=== PATIENT | female | born 2000 | race Caucasian/White ===

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

== ENCOUNTER 2020-01-27 20:15 | Emergency (ER) | payer SELFPAY ==
[~2020-01-27] VITALS: Ht 167 cm; Wt 155.8 kg
[2020-01-27 20:24] VITALS: BP 160/98
--- NOTE | 2020-01-27 20:57 | ED Back Pain ---
General Chief Complaint: Back Problems Stated Complaint: BACK PAIN Nursing Triage Note: pt presents to ed with concern of lower back pain. pt was bending over to lift a package yesterday and her pain started at that point Nursing Sepsis Screen: No Definite Risk History of Present Illness Date Seen by Provider: Jan 27, 2020 Time Seen by Provider: 20:45 Initial Comments 19-year-old female presents for low back pain. She reports feeling a stretching sensation while doing yoga a week ago. Yesterday, she lifted a large box and felt increased pain. No bowel or bladder incontinence or retention. She took Ibuprofen last evening, hasn't need pain medication today. No chronic history of back problems. Location: Lumbar Spine, Paraspinous Muscles Timing/Duration: 3-4 Days Severity: Moderate Pain/Injury Location: Back Radiation: Buttocks, Upper Legs Method of Injury: Other Associated Symptoms: muscle spasms; No numbness in legs/feet, No tingling in legs/feet, No sensory/motor loss; lower back pain; No loss of bladder control, No loss of bowel control Allergies and Home Medications Allergies Coded Allergies: No Known Drug Allergies (Unverified , 03/11/18) Home Medications Hyoscyamine Sulfate 0.125 Mg Tab.subl, 1-2 TAB SL Q4H Prescribed by: IVA BRITTON on 03/12/18139 Ondansetron 4 Mg Tab.rapdis, 4 MG PO Q4H Prescribed by: IVA BRITTON on 03/12/18139 Pantoprazole Sodium 40 Mg Tablet.dr, 40 MG PO DAILY Prescribed by: IVA BRITTON on 03/12/18139 Patient Home Medication List Home Medication List Reviewed: Yes Review of Systems Constitutional: no symptoms reported, see HPI Musculoskeletal: see HPI, back pain; No neck pain All Other Systems Reviewed Negative Unless Noted: Yes Past Pcxfein-Whhdde-Rmjjtc Hx Past Med/Social Hx: Reviewed Nursing Past Med/Soc Hx Patient Social History Alcohol Use: Denies Use Recreational Drug Use: No Smoking Status: Never a Smoker 2nd Hand Smoke Exposure: No Recent Foreign Travel: No Contact w/Someone Who Travel: No Recent Infectious Disease Expo: No Recent Hopitalizations: No Physical Abuse: No Sexual Abuse: No Mistreated: No Immunizations Up To Date Tetanus Booster (TDap): Unknown PED Vaccines UTD: Yes Seasonal Allergies Seasonal Allergies: Yes Past Medical History Surgeries: No Respiratory: Yes Asthma Currently Using CPAP: No Currently Using BIPAP: No Cardiac: No Neurological: No : No Hx : 0 Hx Para: 0 Genitourinary: No Gastrointestinal: No Gastroesophageal Reflux Musculoskeletal: Yes Back Injury Endocrine: No HEENT: No Cancer: No Psychosocial: No Anxiety, Depression Integumentary: No Blood Disorders: No Adverse Reaction/Blood Tranf: No Physical Exam Vital Signs Vital Signs - First Documented 01/27/20 20:24 Temp 36.8 Pulse 114 Resp 18 B/P (MAP) 160/98 (118) Pulse Ox 100 O2 Delivery Room Air Capillary Refill : Less Than 3 Seconds Height, Weight, BMI Height: 5'7.00" Weight: 290lbs. oz. 131.351967zm; 55.00 BMI Method:Stated General Appearance: No Apparent Distress, WD/WN, Obese Cardiovascular: Regular Rate, Rhythm, No Edema, No Murmur, Normal Peripheral Pulses Respiratory: Chest Non Tender, Lungs Clear, Normal Breath Sounds Gastrointestinal: Normal Bowel Sounds, Non Tender, Soft Back: Normal Inspection, No CVA Tenderness, No Vertebral Tenderness, Decreased Range of Motion (trace with pain and point); No Muscle Spasm, No Vertebral Tenderness; Other (patient ambulates with a steady gait, able to rise on her toes and heels. Power V/V L4-S1. Neg SLR sign. ) Extremity: Normal Capillary Refill, Normal Inspection, Normal Range of Motion Neurologic/Psychiatric: Alert, Oriented x3, No Motor/Sensory Deficits, Normal Mood/Affect Progress/Results/Core Measures Results/Orders My Orders Orders - ISADORA KAUFMAN Acetaminophen Tablet (Tylenol Tablet) (01/27/20 21:00) Medications Given in ED Current Medications Medications Dose Ordered Sig/Mimi Route Start Time Stop Time Status Last Admin Dose Admin Acetaminophen 1,000 mg ONCE ONCE PO 01/27/20 21:00 01/27/20 21:01 DC 01/27/20 21:04 1,000 MG Vital Signs/I&O 01/27/20 20:24 Temp 36.8 Pulse 114 Resp 18 B/P (MAP) 160/98 (118) Pulse Ox 100 O2 Delivery Room Air Blood Pressure Mean: 118 Departure Impression Primary Impression: Lumbar sprain Qualified Codes: S33.5XXA - Sprain of ligaments of lumbar spine, initial encounter Additional Impression: Back pain Qualified Codes: M54.42 - Lumbago with sciatica, left side; M54.41 - Lumbago with sciatica, right side Disposition: 01 HOME, SELF-CARE Condition: Improved Departure-Patient Inst. Decision time for Depature: 20:50 Referrals: [facility] (PCP/Family) Primary Care Physician Patient Instructions: Lumbar Muscle Strain (DC) Add. Discharge Instructions: Alternate heat and ice to your low back. Apply icy hot with lidocaine to areas of tenderness. Alternate between Tylenol 650 mg and ibuprofen 600 mg every 4 hours for pain. Follow-up with your chiropractor or the nurse practitioner [facility]. Return to the emergency department for new, urgent health care needs. All discharge instructions reviewed with patient and/or family. Voiced understanding. ISADORA KAUFMAN Jan 27, 2020 20:57
[2020-01-27] MEDS ORDERED: ACETAMINOPHEN 500 MG TAB (TYLENOL) PO ONE (21:00)
--- OUTSIDE RECORDS SUMMARY | 2020-01-27 21:05 | XMS REPORT ---
Author Author [employer] [email or web address] Address [address] [address] Care Team Providers Care Project Manager Name Role Phone STEPHANIE NORWOOD Unavailable Unavailable MEDEROS JALEN Unavailable Unavailable SAMI JEFFERSNYA Unavailable Unavailable STEPHANIE NORWOOD Unavailable STEPHANIE NORWOOD Unavailable zzANTONY, STEPHANIE Unavailable zzANTONY, STEPHANIE Unavailable zzANTONY, STEPHANIE Unavailable YOLANDE KENNEDY Unavailable BRII, WILEY Unavailable BRII, WILEY Unavailable STEPHANIE VALENTINE Unavailable CHETAN Johnston Unavailable STEPHANIE VALENTINE Unavailable LIDIA WILD Unavailable BRII, WILEY Unavailable LIDIA WILD Unavailable LIDIA WILD Unavailable LIDIA WILD Unavailable BRII, WILEY Unavailable BRIDGER PLASENCIA Unavailable LIDIA WILD Unavailable BRIGITTE RIZVI Unavailable LIDIA WILD Unavailable LIDIA WILD Unavailable KASEY MOURA MD Unavailable Unavailable LIDIA WILD Unavailable LIDIA WILD Unavailable LOREE GALINDO Unavailable [facility] Unavailable ROXY PLASENCIA Unavailable ROXY PLASENCIA Unavailable Migration, Doctor Unavailable Unavailable Migration, Doctor Unavailable Unavailable LIDIA WILD Unavailable Unavailable Migration, Doctor Unavailable Unavailable Migration, Doctor Unavailable Unavailable Migration, Doctor Unavailable Unavailable TEETEE MICHAEL Unavailable Migration, Doctor Unavailable Unavailable zzANTONY, STEPHANIE Unavailable zzANTONY, STEPHANIE Unavailable Migration, Doctor Unavailable Unavailable zzANTONY, STEPHANIE Unavailable Migration, Doctor Unavailable Unavailable zkennaFANNIEKenneth CHETAN Unavailable Migration, Doctor Unavailable Unavailable zzANTONY, STEPHANIE Unavailable Migration, Doctor Unavailable Unavailable Unavailable Unavailable Migration, Doctor Unavailable Unavailable Migration, Doctor Unavailable Unavailable Migration, Doctor Unavailable Unavailable Migration, Doctor Unavailable Unavailable Migration, Doctor Unavailable Unavailable Migration, Doctor Unavailable Unavailable Migration, Doctor Unavailable Unavailable Migration, Doctor Unavailable Unavailable AMAN KELLEY, ERNESTO Glasgow Unavailable Unavailable Unavailable Unavailable Unavailable Unavailable Unavailable Unavailable Unavailable Unavailable Allergies The data below is from unstructured sources Substance Reaction Event Type N.K.D.A. Info Not Available Non Drug Allergy Substance Reaction Event Type Date Status N.K.D.A. Unknown Non Cristian g Allergy Jun, Unknown No Information Encounters Encounter Date Encounter Type Encounter Diagnosis Care Provider Facility Start: Emergency department [facility]NESTO [facility] 01-27-2020 patient visit [facility] Start: Patient encounter LIDIA WILD [facility] 01-24-2020 procedure [facility] Start: Patient encounter ILDIA WILD [facility] 01-14-2020 procedure [facility] Start: [facility] Exercise induced LIDIA Glasgow [facility] 12-22-2019 bronchospasm Start: [facility], left ear LORENE SHAKEEL Mcpherson [facility] 12-16-2019 CARE CARE Start: Encounter by computer LIDIA WILD [facility] 12-14-2019 link Start: Telephone encounter LIDIA WILD [facility] 12-14-2019 Start: Encounter by computer LIDIA WILD [facility] 12-13-2019 link Start: Encounter by computer LIDIA WILD [facility] 12-11-2019 link Start: Encounter by computer LIDIA WILD [facility] 11-30-2019 link Start: [facility] Start: [facility] Exercise induced LIDIA WILD [facility] 11-29-2019 bronchospasm Start: [facility] encounter NA [facility] 09-29-2019 [facility] Start: [facility] encounter NA [facility] 08-25-2019 [facility] Start: [facility] encounter NA [facility] 08-09-2019 procedure [facility] Start: Patient encounter LIDIA WILD [facility] 07-12-2019 procedure [facility] ([id number]) Start: Patient encounter LIDIA WILD [facility] 04-17-2019 procedure [facility] (43583) Start: Patient encounter LIDIA WILD [facility] 04-17-2019 procedure [facility] (49288) Start: Patient encounter LIDIA WILD [facility] 12-28-2018 procedure [facility] ([id number]) Start: Patient encounter LIDIA WILD [facility] 10-30-2018 procedure [facility] (49009) Start: Patient encounter LIDIA WILD [facility] ealt 08-24-2018 procedure [facility] (75976) Start: Patient encounter NA [facility]alth 06-16-2018 procedure [facility] (21952) Start: Patient encounter LIDIA WILD [facility] ealt 06-11-2018 procedure [facility] (49740) Start: Emergency department MING BERNOT Not Avai lable ([id number]) 05-19-2018 patient visit End: 05-20-2018 Start: Patient encounter MING BERNOT Not Availab le ([id number]) 05-19-2018 procedure Start: Emergency department IVAKy BRITTON DO Not Avai lable ([id number]) 03-12-2018 patient visit End: 03-12-2018 Start: Patient encounter 03-12-2018 procedure Start: Patient encounter NA NA Not Availab le ([id number]) 01-19-2018 procedure Start: Patient encounter LIDIA WILD Not Availab le ([id number]) 01-18-2018 procedure Start: Patient encounter [facility]IDIA WILD [facility] 12-17-2017 [facility] (22055) Start: Patient encounter NA NA Not Availab le (45115) 12-10-2017 procedure Start: Patient encounter LIDIA WILD [facility] 12-04-2017 procedure [facility] ([id number]) Start: Patient encounter LIDIA WILD [facility] 10-06-2017 procedure [facility] ([id number]) Start: Patient encounter KASEY MOURA MD Not Avail able ([id number]) 08-26-2016 procedure Start: Patient encounter KASEY MOURA MD Not Avail able ([id number]) 05-13-2016 procedure Patient encounter NA NA [facility] procedure [facility] (86353) Medical Equipment No Information Goals No Information Immunizations Immunizatio Immunization Notes Care Provider Facility n Date 04-16-2019 influenza, seasonal, NA NA [facility] injectable [facility] ([id number]) 06-16-2018 TORADOL (IM) 60 MG/2ML [facility] (UP TO 15 MG) Other Phone: [facility] [place] ([id number]) 02-25-2018 meningococcal B NA NA Not Available (77453) vaccine, recombinant, OMV, adjuvanted ; Translations: [BEXSERO (MEN B)] 02-25-2018 meningococcal NA [facility] - (groups A, C, Y and [facility] W-135) diphtheria (74457) toxoid conjugate vaccine (MCV4O) 02-25-2018 Human Papillomavirus NA NA Not Avai lable (91523) 9-valent vaccine ; Translations: [SINGLE IMMUNIZATION ADMIN] 02-25-2018 Meningococcal, MCV4, LIDIA WILD [facility] unspecified conjugate Other Phone: [facility] formulation(groups A, [place] (93323) C, Y and W-135) 05-04-2014 meningococcal Critical access hospital polysaccharide (groups Other Phone: [facility] Chelsie nicholeglenn A, C, Y and W-135) [place] (78076) diphtheria toxoid conjugate vaccine (MCV4P) 05-04-2014 tetanus toxoid, [facility] reduced diphtheria Other Phone: [facility] t toxoid, and acellular [place] (22537) pertussis vaccine, adsorbed 05-04-2014 varicella virus [facility] vaccine Other Phone: [facility] [place] ([id number]) 05-04-2014 varicella virus [facility] vaccine [facility] (50495) 01-19-2002 diphtheria, tetanus [facility] toxoids and acellular [facility] pertussis vaccine [facility] (95114) 01-19-2002 hepatitis B vaccine, NA [facility] pediatric or [facility] pediatric/adolescent [facility] dosage (35109) 01-19-2002 measles, mumps and NA [facility] rubella virus vaccine [facility] (84587) 01-19-2002 poliovirus vaccine, NA [facility] inactivated [facility] (06817) 01-01-2001 diphtheria, tetanus [facility] toxoids and acellular [facility] pertussis vaccine [facility] ([id number]) 01-01-2001 pneumococcal conjugate [facility] vaccine, 7 valent [facility] (07145) 01-01-2001 poliovirus vaccine, [facility] inactivated [facility] (26867) Vaccination ; [facility] Via Melania guillory Translations: Work Phone: [employer] ([id number]) [vaccine] Interventions No Information Medications Current Medications Medication Drug Dates Sig Sig (Original) Class(es) (Normalized) amoxicillin 875 mg oral Penicillin Start: take 1 tablet Amoxicillin 875 MG Orally every 12 hrs 1 tablet -class 05-16-2018 by mouth every tablet 12h 17 Apr, 2018 10 day(s) Active (1 source) Antibacter twelve hours ial calcium carbonate 500 mg take 1 tablet Tums 500 MG Orally Once a day 1 tablet chewable tablet by mouth once 24h Active (2 sources) daily chlorzoxazone 250 mg Muscle Start: take 1 tablet Chl orzoxazone 250 MG Orally 3 times a oral tablet Relaxant 06-11-2018 by mouth three day, prn mu scle spasm 1 tablet as needed (1 source) times daily as with food May, 2 018 7 days Active needed for muscle spasms ProAir HFA 90 Start: take 2 puff(s) ProAir HFA 90 m cg/actuation 2 puffs by mcg/actuation 03-03-2012 by inhalation Inhalation rout e 4 times per day Feb, (1 source) four times 2011 Active daily Completed/Discontinued Medications Medication Drug Dates Sig Sig (Original) Class(es) (Normalized) aspirin 325 mg / citric Platelet take 325-1000 Pepper-S eltzer [phone] MG Orally acid 1000 mg / sodium Aggregatio tablets by Twice a day 2 tablets as needed 12h bicarbonate 1916 mg n mouth twice Not-Taking effervescent oral tablet Inhibitor, daily as need ed (2 sources) Nonsteroid al Anti-infla mmatory Drug, Calculi Dissolutio n Agent, Anti-coagu lant bismuth subsalicylate Bismuth Pepto-Bismol 524 MG/30ML Orally 8 (2 sources) time(s) a day 30 ml as need ed Not-Taking Pepto-Bismol 524 MG/30ML Orally 8 time(s) a day 30 ml as needed Active hyoscyamine sulfate Start: take 1 tablet Hyoscyami ne Sulfate (Levsin-Sl) 0.125 Mg 0.125 mg sublingual 03-12-2018 under the Tab.subl 1-2 Tab SUBLINGUAL Every 4HRS tablet tongue every for Abdominal Pain 10 Tab 03/12/18 (1 source) four hours ondansetron 4 mg Serotonin- Start: take 1 tablet Ondanse aminata (Zofran Odt) 4 Mg Tab.rapdis disintegrating oral 3 Receptor 03-12-2018 by mouth every 4 M g ORAL Every 4HRS for Nausea/Vomiting tablet Antagonist four hours for 10 Tab 03/12/18 (1 source) nausea pantoprazole 40 mg Proton Start: take 1 tablet Panto prazole Sodium (Protonix) 40 Mg delayed release oral Pump 03-12-2018 by mouth once Tab let.dr 40 Mg ORAL Daily 15 Tab tablet Inhibitor daily 03/12/18 (1 source) Payers Date Payer Normalized Payer [id number] Plan of Treatment Date Care Activity Detail Author Start: [facility] 07-15-2018 Problems Active Problems Problem Problem Date Last Documented Episodic/Chr Provider Classificati Recorded Date onic on Abdominal Upper abdominal pain, unspecified Ep isodic pain (1 source) Noninfectiou Noninfective gastroenteritis and Epi sodic s colitis, unspecified ; gastroenteri Translations: [Gastroenteri tis] tis (2 sources) Nutritional Vitamin D deficiency, unspecified Chronic KASEY deficiencies MARTELL KELLEY (4 sources) Other ear Otalgia, left ear ; Translations: [ Episodic Doctor and sense - Otalgia, left ear H92.02] Migrati on organ disorders (2 sources) Other Body mass index (BMI) 40.0-44.9, Chr onic nutritional; adult endocrine; and metabolic disorders (2 sources) Other Obesity, unspecified Chronic nutritional; endocrine; and metabolic disorders (2 sources) Past or Other Problems Problem Problem Date Last Documented Episodic/Chr Provider Classificati Recorded Date onic on Headache; Headache ; Translations: [Headache] Episodic MING including BERNOT migraine (3 sources) Otitis media Unspecified nonsuppurative otitis Episodic MING and related media, unspecified ear ; BERNOT conditions Translations: [Serous otiti s media] (2 sources) Procedures Date Procedure Procedure Detail Performing Cl inician Start: Physical therapy TEETEE MICHAEL 08-24-2018 evaluation low Other Phone: complex 20 mins Start: Therapeutic px 1/> TEETEE MICHAEL 08-24-2018 areas each 15 min Other Phone: exercises Start: Ketorolac ROXY PLASENCIA 06-16-2018 tromethamine inj Other Phone: Start: Radex spine ROXY PLASENCIA 06-16-2018 cervical 2 or 3 Other Phone: views Start: Radex spine ROXY PLASENCIA 06-16-2018 thoracic 2 views Other Phone: Start: Therapeutic ROXY PLASENCIA 06-16-2018 prophylactic/dx Other Phone: injection subq/im Start: Assay of thyroid LIDIA WILD 04-10-2018 stimulating Other Phone: hormone tsh Start: Blood count LIDIA WILD 04-10-2018 complete auto&auto Other difrntl wbc Start: Collection venous LIDIA WILD 04-10-2018 blood venipuncture Other Start: Comprehensive LIDIA WILD 04-10-2018 metabolic panel Other Phone: Start: Hemoglobin LIDIA WILD 04-10-2018 glycosylated a1c Other Phone: Start: Lipid panel LIDIA WILD 04-10-2018 Other Results Test Name Value Interpreta Reference Facilit Date tion Range y Time xray : spine, thoracic 2 views (in house) on null NEGATED: Highlighted Communi row ty Laboratory studies Health (set) [facility] ([id number]) not yet categorized on 2019-11-29 Exp date 08/21 Invalid Communi Interpreta ty tion Code [facility] ([id number]) Lot 5.4~5.6~[id number] Invalid Communi Interpreta ty tion Code [facility] (68320) laboratory on 2019-11-29 Albumin [Mass/Vol] 3.9 g/dL Normal 3.6-5.1 Communi g/dL [facility] (01796) Albumin/Globulin 1.3 {ratio} Normal 1.0-2.5 Communi [Mass ratio] (calc) [facility] (07274) ALP [Catalytic 58 U/L Normal 31-125 U/L Communi activity/Vol] [facility] (87477) ALT [Catalytic 23 U/L Normal 6-29 U/L Communi activity/Vol] [facility] (74335) AST [Catalytic 18 U/L Normal 10-30 U/L Communi activity/Vol] [facility] (15860) Basophils (Bld) 0.04 10*3/uL Normal 0-200 Communi [#/Vol] cells/uL ty [facility] (43420) Basophils/100 WBC 0.4 % Normal % Communi (Bld) ty [facility] (12316) Bilirubin [Mass/Vol] 0.3 mg/dL Normal 0.2-1.2 Commu ni mg/dL [facility] (41749) Calcium [Mass/Vol] 9.2 mg/dL Normal 8.6-10.2 Communi mg/dL ty [facility] (28633) Chloride [Moles/Vol] 106 mmol/L Normal 98-110 Commu ni mmol/L [facility] (27687) CO2 [Moles/Vol] 25 mmol/L Normal 20-32 Communi mmol/L ty [facility] (69102) Creatinine 0.64 mg/dL Normal 0.50-1.10 Communi [Mass/Vol] mg/dL ty [facility] (99468) Eosinophils (Bld) 0.242 10*3/uL Normal 15-500 Commun i [#/Vol] cells/uL ty [facility] (87500) Eosinophils/100 WBC 2.4 % Normal % Commun i (Bld) ty [facility] (31906) Erythrocyte 13.9 % Normal 11.0-15.0 Communi distribution width % ty (RBC) [Ratio] [facility] (38804) GFR/1.73 sq 149 mL/min/{1.73_m2} Normal > OR = 60 Commu ni M.predicted among mL/min/1.7 ty blacks MDRD 3m2 Health (S/P/Bld) [Vol Center rate/Area] [facility] (20743) GFR/1.73 sq 128 mL/min/{1.73_m2} Normal > OR = 60 Commu ni M.predicted MDRD mL/min/1.7 ty (S/P/Bld) [Vol 3m2 Health rate/Area] [facility] (32548) Globulin (S) 3.1 g/dL Normal 1.9-3.7 Communi [Mass/Vol] g/dL ty (calc) [facility] (24451) Glucose [Mass/Vol] 85 mg/dL Normal 65-99 Communi mg/dL ty [facility] (72348) Hematocrit (Bld) 39.6 % Normal 35.0-45.0 Communi [Volume fraction] % ty [facility] (32433) Hemoglobin (Bld) 12.5 g/dL Normal 11.7-15.5 Communi [Mass/Vol] g/dL [facility] (55528) Lymphocytes (Bld) 2.273 10*3/uL Normal 850-3900 Commun i [#/Vol] cells/uL [facility] (13764) Lymphocytes/100 WBC 22.5 % Normal % Commun i (Bld) [facility] (20376) MCH (RBC) [Entitic 26.9 pg Low 27.0-33.0 Communi mass] pg [facility] (11746) MCHC (RBC) 31.6 g/dL Low 32.0-36.0 Communi [Mass/Vol] g/dL [facility] (30029) MCV (RBC) [Entitic 85.3 fL Normal 80.0-100.0 Communi vol] fL [facility] (16656) Monocytes (Bld) 0.788 10*3/uL Normal 200-950 Communi [#/Vol] cells/uL [facility] (70580) Monocytes/100 WBC 7.8 % Normal % Communi (Bld) [facility] (02471) Neutrophils (Bld) 6.757 10*3/uL Normal 6200-3272 Commun i [#/Vol] cells/uL [facility] (07581) Neutrophils/100 WBC 66.9 % Normal % Commun i (Bld) [facility] (49135) Platelet mean volume 9.7 fL Normal 7.5-12.5 Commu ni (Bld) [Entitic vol] fL ty [facility] (91600) Platelets (Bld) 466 10*3/uL High 140-400 Communi [#/Vol] Thousand/u ty L [facility] (22646) Potassium 4.4 mmol/L Normal 3.5-5.3 Communi [Moles/Vol] mmol/L ty [facility] (91248) Protein [Mass/Vol] 7.0 g/dL Normal 6.1-8.1 Communi g/dL [facility] (28549) RBC (Bld) [#/Vol] 4.64 10*6/uL Normal 3.80-5.10 Communi Million/uL ty [facility] (82899) Sodium [Moles/Vol] 139 mmol/L Normal 135-146 Communi mmol/L ty [facility] (07816) TSH Qn 2.04 m[IU]/L Normal mIU/L Communi ty [facility] (85085) Urea nitrogen 9 mg/dL Normal 7-25 mg/dL Communi [Mass/Vol] ty [facility] (19582) Urea NOT APPLICABLE Invalid 6-22 Communi nitrogen/Creatinine Interpreta (calc) ty [Mass ratio] tion [facility] (62119) WBC (Bld) [#/Vol] 10.1 10*3/uL Normal 3.8-10.8 Communi Thousand/u ty L [facility] (68932) not yet categorized on 2019-09-29 BLO Negative Invalid Communi Interpreta ty tion Code [facility] (47908) KET 06/2020~clear~yellow~none~neg~neg~neg Invalid Communi Interpreta ty tion [facility] (89631) BLANCHE neg~neg Invalid Communi Interpreta ty tion Code [facility] (25554) Lot # [id number] Invalid Communi Interpreta ty tion Code [facility] (48686) SG 1.020 Invalid Communi Interpreta ty tion Code [facility] (43201) URO 0.2 Invalid Communi Interpreta ty tion Code [facility] (87333) laboratory on 2019-09-29 pH (Bld) 7.5 [pH] Invalid Communi Interpreta ty tion Code [facility] (49782) Protein (U) Negative Invalid Communi [Mass/Vol] Interpreta ty tion Code [facility] (74614) laboratory on 2019-08-25 Bacteria identified SEE NOTE Invalid Communi Cx Nom (U) Interpreta ty tion Code [facility] (33742) not yet categorized on 2018-12-28 Exp date 08/2020 Invalid Communi Interpreta ty tion Code [facility] (38681) Lot 5.6~5.3~0993 Invalid Communi Interpreta ty tion Code [facility] (02663) not yet categorized on 2017-12-10 Exp date 08/2019 Invalid Not Interpreta Availab tion Code le (41656) Lot 5.5~5.4~0356 Invalid Not Interpreta Availab tion Code le (73865) TCA [id number]~02/2019~+~Negative~Negative~Negati Invalid Not ve~Negative~Negative~Negative~Negative~Negati Interpreta Availab ve~Negative~Negative~Negative~Negative~N/A tion Code le (81575) Social History No Information Vital Signs Date Time Vital Sign Value Performing Clinician [facility] 06-16-2018 Body height 170.18 cm [facility] 12:00050 Other Phone: [facility] [place] [employer]43671) 06-16-2018 Body mass index 50.94 kg/m2 [facility] 12:050 (BMI) [Ratio] Other Phone: [facility] [place] [employer]66300) 06-16-2018 Body temperature 97.6 [degF] ROXY [facility] 12:00050 Other Phone: [facility] [place] (33068) 06-16-2018 Body weight 147.56 kg [facility] ealth 12:00-0500 Other Phone: Center [facility] [place] (71741) 06-16-2018 SaO2% (BldA) [Mass [facility] 12:00-0500 fraction] Other Phone: Center [facility] [place] (49331) 05-16-2018 Body height 170.18 cm [facility] 12:30-0500 Other Phone: Center [facility] [place] (66511) 05-16-2018 Body mass index 51.59 kg/m2 [facility] 12:30-0500 (BMI) [Ratio] Other Phone: Center [facility] [place] () 05-16-2018 Body temperature 96.9 [degF] [facility] 12:30-0500 Other Phone: Center [facility] [place] () 05-16-2018 Body weight 149.42 kg [facility] 12:30-0500 Other Phone: Center [facility] [place] () 02-25-2018 Body height 170.18 cm LIDIA WILD [facility] 14:00-0400 Other Phone: Center [facility] [place] (54206) 02-25-2018 Body mass index 48.27 kg/m2 LIDIA WILD [facility] 14:00-0400 (BMI) [Ratio] Other Phone: [facility] [place] (34606) 02-25-2018 Body temperature 97.7 [degF] LIDIA WILD [facility] 14:00-0400 Other Phone: Center [facility] [place] (92818) 02-25-2018 Body weight 139.8 kg LIDIA WILD [facility] 14:00-0400 Other Phone: Center [facility] [place] (68086) 02-14-2018 Body height 170.18 cm BRIGITTE RIZVI [facility] 13: Other Phone: [facility] [place] (48696) 02-14-2018 Body mass index 48.08 kg/m2 CAROLINA RIZVI [facility] [employer] 13: (BMI) [Ratio] Other Phone: [facility] [place] (18559) 02-14-2018 Body temperature 97.7 [degF] CAROLINA RIZVI [facility] [employer] 13: Other Phone: [facility] [place] (90841) 02-14-2018 Body weight 139.26 kg CAROLINA DMITRI [facility] [employer] 13: Other Phone: [facility] [place] (65749) 09-21-2014 Body height 165.74 cm [facility] 12: Other Phone: [facility] [place] (54089) 09-21-2014 Body temperature 97.8 [degF] [facility] 12: Other Phone: [facility] [place] (94001) 09-21-2014 Body weight 129.39 kg [facility] 12: Other Phone: [facility] [place] (61373) 02-14-2014 Body height 166.37 cm Doctor [facility] 12:51-0400 [facility] (62645) 02-14-2014 Body weight 128.91 kg Doctor [facility] 12:51-0400 [facility] (27255) 08-09-2013 Body height 167.64 cm Doctor [facility] 13:34-0500 [facility] [facility] ([id number]) 08-09-2013 Body temperature 98.6 [degF] Doctor [facility] 13:34-0500 [facility] ([id number]) 08-09-2013 Body weight 121.28 kg Doctor [facility] 13:34-0500 [facility] ([id number]) Functional Status The data below is from unstructured sourcesNo functional status information available. Mental Status No Information History general Narrative - Reported Note Date & Note Facility Type History general Narrative - Reported Type Medical Asthma History Medical hx of pneumonia 2014 History Medical obesity History Medical Attention deficit disorder History Medical prediabetes History Surgical No know Surgical history History Hospitalizatio pneumonia - 18 months old n History Hospitalizatio Denies any past psychiatric hospitalization n History [facility] ([id number]) Summary Purpose eClinicalWorks SubmissioneClinicalWorks SubmissioneClinicalWorks SubmissioneClinicalWorks SubmissioneClinicalWorks SubmissioneClinicalWorks Submission Advance Directives Directive Response Recor ded Date/Time Advance Directives No 9:19pm Resuscitation Status Full Code 05/19/18 9:19pm Chief Complaint and Reason for Visit Chief Complaint Head/Cervical Proble ms Reason for Visit Serous otitis media Headache Discharge Instructions No hospital discharge instruction information available. Additional Source Comments This clinical document has been generated using [employer] software that has been certified by the Office of the National Coordinator for Health Information Technology (ONC 15.99.04.3023.[id number]) and the National Committee for Apple Press Operator (NCQA, as an eMeasure certified technology). FOR RECORDS PERTAINING TO PATIENTS WHO ARE OR HAVE BEEN ENROLLED IN A CHEMICAL D EPENDENCY/SUBSTANCE ABUSE PROGRAM, SOME INFORMATION MAY BE OMITTED. This clinica l summary was aggregated from multiple sources. Caution should be exercised in using it in the provision of clinical care. This summary normalizes information from multiple sources, and as a consequence, information in this document may ma terially change the coding, format and clinical context of patient data. In tony tion, data may be omitted in some cases. CLINICAL DECISIONS SHOULD BE BASED ON T HE PRIMARY CLINICAL RECORDS. [employer] provides no warranty or guara ntee of the accuracy or completeness of information in this document.The followi ng information is based on time limited clinical information UNRECOGNIZED CONTENT PROVIDED BELOW FOR UNRECOGNIZED SECTION REASON FOR VISIT Medication refill requestImmunization history dataB f/u -Maxime MA cough emma estion for 4 days. 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 has se en dr wild for this complaint et has an appt with junito on the . kbullmonarnRefill requestpt requesting labs- headaches occuring for a few mon ths AB/MALab (walk-in)Refill requestHeadaches x3 months- have gotten worse , Too th pain- has a root canal with Bjorn on Jun 08, possilby needs antibiotic now Balbir Fleming, LMP 05/01/18PT referralheadaches-ca,RMA, pt complaining of havi ng real bad headaches and the medicine she was prescibe isn't working. and when she get her headaches it's hard to move her right [id number]
--- OUTSIDE RECORDS SUMMARY | 2020-01-27 21:05 | XMS REPORT | Encounter Summary ---
Author Author [facility] Organization [facility] Address Unknown Phone Unavailable Care Team Providers Care Pharmacist Aide Name Role Phone PCP Unavailable Encounter Details Care Team Description Date Type Department Virginia Sahrp RN 09/27/2016 Telephone [facility] [address] [place] [address] Social History Date Tobacco Use Types Packs/Day Years Used Never Smoker Drinks/Week oz/Week Comments Alcohol Use No Sex Assigned at Date Recorded Not on file Industry Job Start Date Occupation Not on file Not on file Not on file Travel End Travel History Travel Start No recent travel history available. documented as of this encounter Miscellaneous Notes * Telephone Encounter - Virginia Sharp RN - 09/27/2016 12:36 PM CDT Mom left VMM requesting lab results from recent labs done. (we don't have anythi ng recent) Called back and left hipaa compliant msg to return call documented in this encounter Plan of Treatment Not on filedocumented as of this encounter Visit Diagnoses Not on filedocumented in this encounter
--- OUTSIDE RECORDS SUMMARY | 2020-01-27 21:05 | XMS REPORT | Clinical Summary ---
Author Author [facility] Organization [facility] Address Unknown Phone Unavailable Care Team Providers Care Title I Paraprofessional Name Role Phone PCP Unavailable Allergies No Known Allergies Medications End Date Status Medication Sig Dispensed Refills Start Date Active VYVANSE 60 mg capsule TAKE ONE 0 02/08/20 1 CAPSULE BY 6 MOUTH IN THE MORNING Active SYMBICORT 160-4.5 INHALE TWO 0 mcg/actuation inhaler PUFFS BY 6 MOUTH TWICE DAILY (RINSE MOUTH AFTER USE; MUST HAVE APPOINTMENT FOR REFILL) Active metformin (GLUCOPHAGE-XR) Take 3 270 tablet 3 24 hr tablet 500 tablets 6 mgIndications: Insulin (1,500 mg resistance total) by mouth daily with breakfast. Active ergocalciferol Take 1 12 capsule 0 (ERGOCALCIFEROL) 50,000 capsule 7 unit capsuleIndications: (50,000 Units Insulin resistance total) by mouth weekly. Active Problems Problem Noted Date Insulin resistance 03/15/2016 Last Assessment & Plan: I met with Emma and her mother today to discuss the care and management of her condition. Overall she is a heal thy young girl but is had some challenges with significant weight incr ease and there is a history of diabetes and thyroid disease in the fam gil and I do think it would be worthwhile considering laboratory studi es to establish some baseline for her. She does have some clinical findin gs at raise concerns about early PCO S as well and I will be in contact with family once about a chance to review these results to discuss the nex t steps in her treatment plan. Family History Medical History Relation Name Comments Hypothyroidism Paternal Aunt Diabetes type II Paternal Grandfather Relation Name Status Comments Paternal Aunt Paternal Grandfather Social History Date Tobacco Use Types Packs/Day Years Used Never Smoker Drinks/Week oz/Week Comments Alcohol Use No Sex Assigned at Date Recorded Not on file Industry Job Start Date Occupation Not on file Not on file Not on file Travel End Travel History Travel Start No recent travel history available. Last Filed Vital Signs Reading Time Taken Comments Vital Sign 126/78 03/15/2016 2:08 PM CDT Blood Pressure 88 03/15/2016 2:08 PM CDT Pulse - - Temperature - - Respiratory Rate - - Oxygen Saturation - - Inhaled Oxygen Concentration 147.9 kg (326 lb) 03/15/2016 2:08 PM CDT Weight 166.5 cm (5' 5.55") 03/15/2016 2:08 PM CDT Height 53.34 03/15/2016 2:08 PM CDT Body Mass Index Plan of Treatment Health Maintenance Due Date Last Done Comments Td # 1999 HPV Vaccine (1 - 2-dose 2010 series) Influenza Vaccine (#1) 2020 MCV4 Vaccine Aged Out No longer eligible based on patient's age to complete this topic Results Not on filefrom Last 3 Months Advance Directives For more information, please contact: [phone] Patient Piece Cutter Explanation Type Date Recorded Advance Directives and Living Will Power of Mule Tender
--- OUTSIDE RECORDS SUMMARY | 2020-01-27 21:06 | XMS REPORT | Encounter Summary ---
Author Author Organization Address Unknown Phone Unavailable Care Team Providers Care Hired Worker Name Role Phone PCP Unavailable Encounter Details Care Team Description Date Type Department Gin Castro RN Vitamin D deficiency (Primary Dx) 05/15/2016 Orders Only [facility] [address] [place] [address] Social History Date Tobacco Use Types Packs/Day Years Used Never Smoker Drinks/Week oz/Week Comments Alcohol Use No Sex Assigned at Date Recorded Not on file Industry Job Start Date Occupation Not on file Not on file Not on file Travel End Travel History Travel Start No recent travel history available. documented as of this encounter Plan of Treatment Order Schedule Name Type Priority Associated Diag noses Expected: 08/05/2016, Expires: 7 Vitamin D, 25-Hydroxy Lab Routine Vitamin D deficiency documented as of this encounter Visit Diagnoses Diagnosis Vitamin D deficiency documented in this encounter
--- OUTSIDE RECORDS SUMMARY | 2020-01-27 21:06 | XMS REPORT | Encounter Summary ---
Author Author [facility] Organization [facility] Address Unknown Phone Unavailable Care Team Providers Care Manager Of Compliance Name Role Phone PCP Unavailable Encounter Details Care Team Description Date [place] [address] [place] [address] [phone] 05/16/2016 Documentation [facility] [address] [place] [address] Social History Date Tobacco Use Types Packs/Day Years Used Never Smoker Drinks/Week oz/Week Comments Alcohol Use No Sex Assigned at Date Recorded Not on file Industry Job Start Date Occupation Not on file Not on file Not on file Travel End Travel History Travel Start No recent travel history available. documented as of this encounter Progress Notes * Bing Aldridge RN - 05/16/2016 10:07 AM RESEARCH TEST ENGINE OPERATOR See attached labs ARCH TEST ENGINE OPERATOR documented in this encounter Plan of Treatment Not on filedocumented as of this encounter Procedures Comments Procedure Name Priority Date/Time Associated Diag nosis LAB OUTSIDE RECORD Routine 05/13/2016 documented in this encounter Results * Lab Outside Record (05/13/2016) Specimen Blood Narrative Performed At This result has an attachment that is n ot available. documented in this encounter Visit Diagnoses Not on filedocumented in this encounter
--- OUTSIDE RECORDS SUMMARY | 2020-01-27 21:06 | XMS REPORT | Encounter Summary ---
Author Author [facility] Address Unknown Phone Unavailable Care Team Providers Care Dairy Equipment Mechanic Name Role Phone PCP Unavailable Encounter Details Care Team Description Date Type Department Virginia Sharp RN 05/13/2016 Telephone [facility] [address] [place] [address] Social History Date Tobacco Use Types Packs/Day [...] Telephone Encounter - Virginia Sharp RN - 05/13/2016 11:05 AM CLOTH TEARER Via [employer] in [place] requested lab order be faxed to them w physician mio brush. done H TEARER documented in this encounter Plan of Treatment Not on filedocumented as of this encounter Visit Diagnoses Not on filedocumented in this encounter
--- OUTSIDE RECORDS SUMMARY | 2020-01-27 21:06 | XMS REPORT | Encounter Summary ---
Author Author [facility] Organization [facility] Address Unknown Phone Unavailable Care Team Providers Care Vocational Rehab Consultant Name Role Phone PCP Unavailable Reason for Visit * Reason Comments Medication Refill Encounter Details Care Team Description Date Type Department Gin Castro RN Medication Refill 05/15/2016 Refill [facility] [address] [facility] [address] [place] [address] Social History Date Tobacco Use Types Packs/Day Years Used Never Smoker Drinks/Week oz/Week Comments Alcohol Use No Sex Assigned at Date Recorded Not on file Industry Job Start Date Occupation Not on file Not on file Not on file Travel End Travel History Travel Start No recent travel history available. documented as of this encounter Plan of Treatment Not on filedocumented as of this encounter Visit Diagnoses Diagnosis Insulin resistance Other abnormal glucose documented in this encounter
--- OUTSIDE RECORDS SUMMARY | 2020-01-27 21:06 | XMS REPORT | Encounter Summary ---
Author Author [facility] Organization [facility] Address Unknown Phone Unavailable Care Team Providers Care Business System Consultant Name Role Phone PCP Unavailable Reason for Visit * Reason Comments Weight Gain Encounter Details Care Team Description Date [place] [address] [place] [address] [phone] Insulin resistance 03/15/2016 Initial consult [facility] [address] [place] [id number] Social History Date Tobacco Use Types Packs/Day Years Used Never Smoker Drinks/Week oz/Week Comments Alcohol Use No Sex Assigned at Date Recorded Not on file Industry Job Start Date Occupation Not on file Not on file Not on file Travel End Travel History Travel Start No recent travel history available. documented as of this encounter Last Filed Vital Signs Reading Time Taken [...] 03/15/2016 2:08 PM CDT Body Mass Index documented in this encounter Progress Notes * Irvin Borrego MD - 03/15/2016 2:00 PM CDT Patient ID: Emma Herman is a 15 y.o. female. Subjective: Patient presents with Weight Gain History of Present Illness Emma is a 15 year 49-yhaei-nhd female who is here today for evaluati on of her growth and development. She was accompanied in clinic by her mother wh o provided additional history. Emma has generally been a healthy young girl sh yelena does have a history of asthma but this has been well controlled with regular i nhalers. However there has been some concerns about more significant weight gain and there is a history of diabetes and thyroid disease in the family which prom pted the referral to our clinic. Problem List: Patient Active Problem List Diagnosis SNOMED CT(R) Insulin resistance METABOLIC SYNDROME X Allergies: No Known Allergies Medications: Outpatient Encounter Prescriptions as of 03/15/2016 Medication Sig Dispense Refill SYMBICORT 160-4.5 mcg/actuation inhaler INHALE TWO PUFFS BY MOUTH TWICE STEFFI Y (RINSE MOUTH AFTER USE; MUST HAVE APPOINTMENT FOR REFILL) 0 VYVANSE 60 mg capsule TAKE ONE CAPSULE BY MOUTH IN THE MORNING 0 No facility-administered encounter medications on file as of 03/15/2016. History: Past Medical History Diagnosis Date ADD (attention deficit disorder) History reviewed. No pertinent past surgical history. Family History Problem Relation Age of Onset Hypothyroidism Paternal Aunt Diabetes type II Paternal Grandfather Social History Social History Marital status: Single Spouse name: N/A Number of children: N/A Years of education: N/A Social History Main Topics Smoking status: Never Smoker Smokeless tobacco: None Alcohol use No Drug use: No Sexual activity: Not Asked Other Topics Concern None Social History Narrative None Review of Systems Constitutional: Negative for activity change, appetite change, fatigue and unexp ected weight change. HENT: Negative for congestion, rhinorrhea, sneezing and sore throat. Eyes: Negative for visual disturbance. Respiratory: Negative for cough, shortness of breath and wheezing. Cardiovascular: Negative for palpitations. Gastrointestinal: Negative for abdominal pain, constipation, diarrhea, nausea an d vomiting. Endocrine: Negative for cold intolerance, heat intolerance, polydipsia and polyu ivonne. Genitourinary: Negative for difficulty urinating and dysuria. Musculoskeletal: Negative for arthralgias, joint swelling and myalgias. Skin: Negative for rash. Allergic/Immunologic: Negative for environmental allergies and food allergies. Neurological: Negative for dizziness, seizures, syncope, weakness and headaches. Psychiatric/Behavioral: Negative for behavioral problems, dysphoric mood and sle ep disturbance. Objective: Visit Vitals BP 126/78 Pulse 88 Ht 1.665 m (5' 5.55") Wt (!) 326 lb (147.9 kg) BMI 53.34 kg/m2 Physical Exam Constitutional: She is oriented to person, place, and time. She appears well-dev eloped and well-nourished. No distress. HENT: Head: Normocephalic and atraumatic. Mouth/Throat: Oropharynx is clear and moist. Eyes: Conjunctivae and EOM are normal. Pupils are equal, round, and reactive to light. Neck: Normal range of motion. Neck supple. No thyromegaly present. Cardiovascular: Normal rate and regular rhythm. No murmur heard. Pulmonary/Chest: Effort normal and breath sounds normal. She has no wheezes. Abdominal: Soft. There is no tenderness. Musculoskeletal: Normal range of motion. She exhibits no edema or tenderness. Lymphadenopathy: She has no cervical adenopathy. Neurological: She is alert and oriented to person, place, and time. She has norm al reflexes. No cranial nerve deficit. Coordination normal. Skin: Skin is warm and dry. No rash noted. Psychiatric: She has a normal mood and affect. Her behavior is normal. Assessment/Plan: Problem List Items Addressed This Visit Other Insulin resistance I met with Emma and her mother today to discuss the care and management of h er condition. Overall she is a healthy young girl but is had some challenges wit h significant weight increase and there is a history of diabetes and thyroid dis ease in the family and I do think it would be worthwhile considering laboratory studies to establish some baseline for her. She does have some clinical findings at raise concerns about early PCO S as well and I will be in contact with family once about a chance to review these results to discuss the next steps in her t reatment plan. Relevant Orders Comprehensive Metabolic Panel Hemoglobin A1C Insulin Lipid Panel T4 Free Thyroid Stimulating Hormone Vitamin D, 25-Hydroxy DHEA-SO4 Testosterone documented in this encounter Miscellaneous Notes * Assessment & Plan Note - Irvin Borrego MD - 03/15/2016 2:39 PM CDT Associated Problem(s): Insulin resistance I met with Emma and her mother today to discuss the care and management of her condition. Overall she is a healthy young girl but is had some challenges with significant weight increase and there is a history of diabetes and thyroid disea se in the family and I do think it would be worthwhile considering laboratory st udies to establish some baseline for her. She does have some clinical findings a t raise concerns about early PCO S as well and I will be in contact with family once about a chance to review these results to discuss the next steps in her yemi atment plan. documented in this encounter Plan of Treatment Order Schedule Name Type Priority Associated Diag noses 1 Occurrences starting 03/15/2016 until 03/16/2017 Comprehensive Metabolic Lab Routine Insuli n resistance Panel 1 Occurrences starting 03/15/2016 until 03/16/2017 Hemoglobin A1C Lab Routine Insulin resista nce 1 Occurrences starting 03/15/2016 until 03/16/2017 Insulin Lab Routine Insulin resista nce 1 Occurrences starting 03/15/2016 until 03/16/2017 Lipid Panel Lab Routine Insulin resista nce 1 Occurrences starting 03/15/2016 until 03/16/2017 T4 Free Lab Routine Insulin resista nce 1 Occurrences starting 03/15/2016 until 03/16/2017 Thyroid Stimulating Lab Routine Insulin re sistance Hormone 1 Occurrences starting 03/15/2016 until 03/16/2017 Vitamin D, 25-Hydroxy Lab Routine Insulin resistance 1 Occurrences starting 03/15/2016 until 03/16/2017 DHEA-SO4 Lab Routine Insulin resista nce 1 Occurrences starting 03/15/2016 until 03/16/2017 Testosterone Lab Routine Insulin resista nce documented as of this encounter Visit Diagnoses Diagnosis Insulin resistance Other abnormal glucose documented in this encounter
--- OUTSIDE RECORDS SUMMARY | 2020-01-27 21:06 | XMS REPORT | Encounter Summary ---
Author Author [facility] Organization [facility] Address Unknown Phone Unavailable Care Team Providers Care Attache Name Role Phone PCP Unavailable Reason for Visit * Reason Comments Medication Refill Encounter Details Care Team Description Date Type Department Gin Castro RN Medication Refill 09/09/2016 Refill [facility] [address] [place] [address] Social History Date Tobacco Use Types Packs/Day [...]
--- OUTSIDE RECORDS SUMMARY | 2020-01-27 21:06 | XMS REPORT | Encounter Summary ---
Author Author [facility] Organization [facility] Address Unknown Phone Unavailable Care Team Providers Care Residential Manager Name Role Phone PCP Unavailable Encounter Details Care Team Description Date [place] [address] [place] [address] [phone] 05/14/2016 Documentation [facility] [address] [place] [address] Social History Date Tobacco Use Types Packs/Day Years Used Never Smoker Drinks/Week oz/Week Comments Alcohol Use No Sex Assigned at Date Recorded Not on file Industry Job Start Date Occupation Not on file Not on file Not on file Travel End Travel History Travel Start No recent travel history available. documented as of this encounter Progress Notes * Bing Aldridge RN - 05/14/2016 11:45 AM STUNT DOUBLE See attached labs T DOUBLE documented in this encounter Plan of Treatment [...]
--- OUTSIDE RECORDS SUMMARY | 2020-01-27 21:06 | XMS REPORT | Encounter Summary ---
Author Author [facility] Organization [facility] Address Unknown Phone Unavailable Care Team Providers Care Development Intern Name Role Phone PCP Unavailable Encounter Details Care Team Description Date Type Department Gin Castro RN 08/29/2016 Documentation [facility] [address] [place] [address] Social History Date Tobacco Use Types Packs/Day Years Used Never Smoker Drinks/Week oz/Week Comments Alcohol Use No Sex Assigned at Date Recorded Not on file Industry Job Start Date Occupation Not on file Not on file Not on file Travel End Travel History Travel Start No recent travel history available. documented as of this encounter Progress Notes * Gin Castro - 08/29/2016 7:02 AM STENOGRAPHER SECRETARY Lab results OGRAPHER SECRETARY documented in this encounter Plan of Treatment Not on filedocumented as of this encounter Procedures Comments Procedure Name Priority Date/Time Associated Diag nosis LAB OUTSIDE RECORD Routine 08/26/2016 documented in this encounter Results * Lab Outside Record (08/26/2016) Specimen Blood Narrative Performed At This result has an attachment that is n ot available. documented in this encounter Visit Diagnoses Not on filedocumented in this encounter
--- OUTSIDE RECORDS SUMMARY | 2020-01-27 21:06 | XMS REPORT | Continuity of Care Document ---
Author Organization Unknown Address Unknown Phone Unavailable Allergies Active Description Code Type Severity Reaction Onset Reported/Identified Relationship to Patient Clinical Status Yes No Known Drug Allergies [id number] Drug Allergy Unknown N/A 03/11/2018 Medications There is no data. Problems Date Dx Coded Attending Type Code Diagnosis Diagnosed By 10/15/2010 KHADIJAH COLVIN APRN 314.01 ADHD COMBINED 10/15/2010 314.01 ADH D COMBINED 10/15/2010 LA NENA KELLEY, TEETEE 314.01 ADHD COMBINED 10/15/2010 LA NENA KELLEY, TEETEE 314.01 ADHD COMBINED 10/15/2010 KHADIJAH COLVIN APRN 314.01 ADHD COMBINED 10/15/2010 KHADIJAH COLVIN APRN 314.01 ADHD COMBINED 10/15/2010 PAUL GONZALES, CHETAN A 314.01 ADHD COMBINED 10/15/2010 STEPHANIE WALSH M 314.01 ADHD COMBINED 10/15/2010 STEPHANIE WALSH M 314.01 ADHD COMBINED 10/15/2010 STEPHANIE WALSH M 314.01 ADHD COMBINED 10/15/2010 SIENA RAMEY APRN 314.01 ADHD COMBINED 10/15/2010 TEETEE DEUTSCH MD 314.01 ADHD COMBINED 06/06/2011 KHADIJAH COLVIN APRN 314.00 ADHD INATTENTIVE 06/06/2011 314.00 ADH D INATTENTIVE 06/06/2011 LA NENA KELLEY, TEETEE 314.00 ADHD INATTENTIVE 06/06/2011 TEETEE DEUTSCH MD 314.00 ADHD INATTENTIVE 06/06/2011 KHADIJAH COLVIN APRN 314.00 ADHD INATTENTIVE 06/06/2011 KHADIJAH COLVIN APRN 314.00 ADHD INATTENTIVE 06/06/2011 PAUL GONZALES, CHETAN A 314.00 ADHD INATTENTIVE 06/06/2011 STEPHANIE WALSH M 314.00 ADHD INATTENTIVE 06/06/2011 [employer] CORPORATE REPRESENTATIVE, STEPHANIE M 314.00 ADHD INATTENTIVE 06/06/2011 [employer] CORPORATE REPRESENTATIVE, STEPHANIE M 314.00 ADHD INATTENTIVE 06/06/2011 SIENA RAMEY APRN R 314.00 ADHD INATTENTIVE 06/06/2011 LA NENA KELLEY, TEETEE 314.00 ADHD INATTENTIVE 10/01/2011 VINICIUS GONZALES, KHADIJAH MOOREH 477.9 RHINITIS 10/01/2011 477.9 RHINITIS 10/01/2011 LA NENA KELLEY, TEETEE 477.9 RHINITIS 10/01/2011 LA NENA KELLEY, TEETEE 477.9 RHINITIS 10/01/2011 VINICIUS GONZALES, KHADIJAH ESTEFANÍA 477.9 RHINITIS 10/01/2011 VINICIUS GONZALES, KHADIJAH ESTEFANÍA 477.9 RHINITIS 10/01/2011 PAUL GONZALES, CHETAN A 477.9 RHINITIS 10/01/2011 [employer] CORPORATE REPRESENTATIVE, STEPHANIE M 477.9 RHINITIS 10/01/2011 [employer] CORPORATE REPRESENTATIVE, STEPHANIE M 477.9 RHINITIS 10/01/2011 [employer] CORPORATE REPRESENTATIVE, STEPHANIE M 477.9 RHINITIS 10/01/2011 CASSIE RAMEY APRNIA R 477.9 RHINITIS 10/01/2011 LA NENA KELLEY, TEETEE 477.9 RHINITIS 09/09/2012 LA NENA KELLEY, TEETEE 278.00 OBESITY 09/09/2012 LA NENA KELLEY, TEETEE V20.2 WELL CHILD 09/09/2012 LA NENA KELLEY, TEETEE 278.00 OBESITY 09/09/2012 LA NENA KELLEY, TEETEE V20.2 WELL CHILD 09/09/2012 VINICIUS GONZALES, KHADIJAH ESTEFANÍA 278.00 OBESITY 09/09/2012 VINICIUS GONZALES, KHADIJAH ESTEFANÍA V20.2 WELL CHILD 09/09/2012 VINICIUS GONZALES, KHADIJAH ESTEFANÍA 278.00 OBESITY 09/09/2012 VINICIUS GONZALES, KHADIJAH ESTEFANÍA V20.2 WELL CHILD 09/09/2012 PAUL GONZALES CHETAN A 278.00 OBESITY 09/09/2012 PAUL GONZALES, CHETAN A V20.2 WELL CHILD 09/09/2012 [employer] CORPORATE REPRESENTATIVE, STEPHANIE M 278.00 OBESITY 09/09/2012 [employer] CORPORATE REPRESENTATIVE, STEPHANIE M V20.2 WELL CHILD 09/09/2012 [employer] CORPORATE REPRESENTATIVE, STEPHANIE M 278.00 OBESITY 09/09/2012 [employer] CORPORATE REPRESENTATIVE, STEPHANIE M V20.2 WELL CHILD 09/09/2012 [employer] CORPORATE REPRESENTATIVE, STEPHANIE M 278.00 OBESITY 09/09/2012 [employer] CORPORATE REPRESENTATIVE, STEPHANIE M V20.2 WELL CHILD 09/09/2012 TANVIR PALAFOXN, SIENA R 278.00 OBESITY 09/09/2012 TANVIR PALAFOXN, SIENA R V20.2 WELL CHILD 09/09/2012 LA NENA KELLEY, TEETEE 278.00 OBESITY 09/09/2012 LA NENA KELLEY, TEETEE V20.2 WELL CHILD 05/04/2014 RAJBOOE FINAL FINISHER FORGING DIES, CHETAN A V03.89 MENINGOCOCCAL DX 05/04/2014 JASOTTE FINAL FINISHER FORGING DIES, CHETAN A V05.4 VARICELLA DX 05/04/2014 RAJOTTE FINAL FINISHER FORGING DIES, CHETAN A V06.1 TDAP DX 05/04/2014 CU[employer] CORPORATE REPRESENTATIVE, STEPHANIE M V03.89 MENINGOCOCCAL DX 05/04/2014 CUCO CORPORATE REPRESENTATIVE, STEPHANIE M V05.4 VARICELLA DX 05/04/2014 CUCO CORPORATE REPRESENTATIVE, STEPHANIE M V06.1 TDAP DX 05/04/2014 CUCO CORPORATE REPRESENTATIVE, STEPHANIE M V03.89 MENINGOCOCCAL DX 05/04/2014 CUCO CORPORATE REPRESENTATIVE, STEPHANIE M V05.4 VARICELLA DX 05/04/2014 CUCO CORPORATE REPRESENTATIVE, STEPHANIE M V06.1 TDAP DX 05/04/2014 CUCO CORPORATE REPRESENTATIVE, STEPHANIE M V03.89 MENINGOCOCCAL DX 05/04/2014 CUCO CORPORATE REPRESENTATIVE, STEPHANIE M V05.4 VARICELLA DX 05/04/2014 CUCO CORPORATE REPRESENTATIVE, STEPHANIE M V06.1 TDAP DX 05/04/2014 TANVIR PALAFOXN, SIENA R V03.89 MENINGOCOCCAL DX 05/04/2014 TANVIR PALAFOXN, SIENA R V05.4 VARICELLA DX 05/04/2014 TANVIR PALAFOXN, SIENA R V06.1 TDAP DX 05/04/2014 LA NENA KELLEY, TEETEE V03.89 MENINGOCOCCAL DX 05/04/2014 LA NENA KELLEY, TEETEE V05.4 VARICELLA DX 05/04/2014 LAN ENA KELLEY, TEETEE V06.1 TDAP DX 10/11/2014 TANVIR GONZALES, SIENA R 461.9 SINUSITIS ACUTE 10/11/2014 LA NENA KELLEY, TEETEE 461.9 SINUSITIS ACUTE 10/24/2014 LA NENA KELLEY, TEETEE 493.92 ASTHMA (ACUTE) EXACERBATION 05/14/2016 Ot E88.81 MET ABOLIC SYNDROME 05/15/2016 Ot E88.81 MET ABOLIC SYNDROME 05/27/2016 Ot E88.81 MET ABOLIC SYNDROME 09/01/2016 MARTELL KELLEY, KASEY Deleon Ot E55 .9 VITAMIN D DEFICIENCY, UNSPECIFIED 09/09/2016 MARTELL KELLEY, KASEY Deleon Ot E55 .9 VITAMIN D DEFICIENCY, UNSPECIFIED 03/11/2018 Ot E88.81 MET ABOLIC SYNDROME 03/11/2018 MARTELL KELLEY, KASEY K Ot E55 .9 VITAMIN D DEFICIENCY, UNSPECIFIED 03/12/2018 Ot E88.81 MET ABOLIC SYNDROME 03/12/2018 MARTELL KELLEY, KASEY K Ot E55 .9 VITAMIN D DEFICIENCY, UNSPECIFIED 03/13/2018 TOBI DO, IVA K Ot E66.9 OBESITY, UNSPECIFIED 03/13/2018 TOBI DO, IVA K Ot F32.9 MAJOR DEPRESSIVE DISORDER, SINGLE EPISOD 03/13/2018 TOBI DO, IVA K Ot F41.9 ANXIETY DISORDER, UNSPECIFIED 03/13/2018 TOBI DO, IVA K Ot K21.9 GASTRO-ESOPHAGEAL REFLUX DISEASE WITHOUT 03/13/2018 TOBI DO, IVA K Ot K52.9 NONINFECTIVE GASTROENTERITIS AND COLITIS 03/13/2018 TOBI DO, IVA K Ot R10.10 UPPER ABDOMINAL PAIN, UNSPECIFIED 03/13/2018 TOBI DO, IVA K Ot Z68.41 BODY MASS INDEX (BMI) 40.0-44.9, ADULT 04/01/2018 LEAH BARNES P S6992 XA Unspecified injury of left wrist, hand and finger(s), initial encounter 04/20/2018 KNENY METZGER P S6982 XA Other specified injuries of left wrist, hand and finger(s), initial encounter 05/01/2018 KENNY METZGER P M2553 2 Pain in left wrist 05/18/2018 KENNY METZGER P S6302 2A Subluxation of radiocarpal joint of left wrist, initial encounter 05/21/2018 MING KRAUS Ot E66.9 OBESITY, UNSPECIFIED 05/21/2018 MING KRAUS Ot F32.9 MAJOR DEPRESSIVE DISORDER, SINGLE EPISOD 05/21/2018 MING KRAUS Ot F41.9 ANXIETY DISORDER, UNSPECIFIED 05/21/2018 MING KRAUS Ot H65.90 UNSPECIFIED NONSUPPURATIVE OTITIS MEDIA, 05/21/2018 MING KRAUS Ot K21.9 GASTRO-ESOPHAGEAL REFLUX DISEASE WITHOUT 05/21/2018 MING KRAUS Ot R51 HEADACHE 05/21/2018 MING KRAUS Ot Z68.41 BODY MASS INDEX (BMI) 40.0-44.9, ADULT 07/16/2018 KENNY METZGER Z4789 Encounter for other orthopedic aftercare 07/27/2018 KENNY METZGER Z4889 Encounter for other specified surgical aftercare 09/21/2018 KENNY METZGER Z4789 Encounter for other orthopedic aftercare 09/30/2018 KENNY METZGER Z4789 Encounter for other orthopedic aftercare Procedures Code Description [place] [address] Khanh ogram (Screening) 09/11/2012 40497 Scre ening Test Of Visual Acuity, Quantitative, Bilateral 78239 PSYC H PHARM MGMT 09/11/2012 J7613 ALBU TEROL UNIT DOSE FORM INHALED 10/24/2014 80301 NEBU LIZER TREATMENT 10/24/2014 Results Test Result Range Comprehensive metabolic panel - 05/13/16 11:40 Serum or plasma sodium measurement (moles/volume) 138 mmol/L 135-145 Serum or plasma potassium measurement (moles/volume) 4.1 mmol/L 3.6-5.0 Serum or plasma chloride measurement (moles/volume) 106 mmol/L 98-107 Carbon dioxide 23 mmol/L 21-32 Serum or plasma anion gap determination (moles/volume) 9 mmol/L 5-14 Serum or plasma urea nitrogen measurement (mass/volume ) 10 mg/dL 7-18 Serum or plasma creatinine measurement (mass/volume) 0.72 mg/dL 0.60-1.30 Serum or plasma urea nitrogen/creatinine mass ratio 14 NRG Serum or plasma glucose measurement (mass/volume) 83 mg/dL 70-105 Serum or plasma calcium measurement (mass/volume) 9.5 mg/dL 8.5-10.1 Serum or plasma total bilirubin measurement (mass/volu me) 0.3 mg/dL 0.1-1.0 Serum or plasma alkaline phosphatase victorina surement (enzymatic activity/volume) 72 U/L 60-350 Serum or plasma aspartate aminotransfera se measurement (enzymatic activity/volume) 19 U/L 5-34 Serum or plasma alanine aminotransferase measurement (enzymatic activity/volume) 23 U/L 0-55 Serum or plasma protein measurement (mass/volume) 7.7 g/dL 6.4-8.2 Serum or plasma albumin measurement (mass/volume) 4.0 g/dL 3.2-4.5 Lipid 1996 panel - 05/13/16 11:40 Serum or plasma triglyceride measurement (mass/volume) 66 mg/dL <150 Serum or plasma cholesterol measurement (mass/volume) 123 mg/dL < 200 Serum or plasma cholesterol in HDL measurement (mass/v olume) 33 mg/dL 40-60 Cholesterol in LDL [mass/volume] in serum or plasma by direct assay 81 mg/dL 1-129 Serum or plasma cholesterol in VLDL measurement (mass/ volume) 13 mg/dL 5-40 Hemoglobin A1c - 05/13/16 11:40 Hemoglobin A1c 5.6 % 4.5-6.2 THYROID STIMULATING HORMONE - 05/13/16 1 1:40 THYROID STIMULATING HORMONE 2.49 u[iU]/mL 0.35-4.94 Serum or plasma thyroxine (T4) free rohith urement (mass/volume) - 05/13/16 11:40 Serum or plasma thyroxine (T4) free measurement (mass/ volume) 1.09 ng/dL 0.70-1.48 Dehydroepiandrosterone sulfate (DHEA-S) measurement - 05/13/16 11:40 Dehydroepiandrosterone sulfate (DHEA-S) measurement 127 % 33-265 Serum or plasma insulin measurement (uni ts/volume) - 05/13/16 11:40 Insulin [mass/volume] in serum or plasma 43.5 m[iU ]/L 6.0- 27.0 25-hydroxyvitamin D measurement - 11:40 25-hydroxy vitamin D measurement 15 % 30-100 TESTOSTERONE TOT FEMAL T CHILD - 6 11:40 Testosterone [mass or moles/volume] in serum or plasma 26 % 9-58 25-hydroxyvitamin D measurement - 10:51 25-hydroxy vitamin D measurement 26 % 30-100 Complete urinalysis with reflex to cultu re - 03/11/18 23:22 Urine color determination YELLOW NRG Urine clarity determination CLEAR NR G Urine pH measurement by test strip 6 5-9 Specific gravity of urine by test strip 1.020 1.016-1.022 Urine protein assay by test strip, semi-quantitative NEGATIVE NEGATIVE Urine glucose detection by automated test strip NE GATIVE NEGATIVE Erythrocytes detection in urine sediment by light micr oscopy 2+ NEGATIVE Urine ketones detection by automated test strip NE GATIVE NEGATIVE Urine nitrite detection by test strip NEGATIVE NEGATIVE Urine total bilirubin detection by test strip NEGA TIVE NEGATIVE Urine urobilinogen measurement by automated test strip (mass/volume) NORMAL NORMAL Urine leukocyte esterase detection by dipstick NEG ATIVE NEGATIVE Automated urine sediment erythrocyte cou nt by microscopy (number/high power field) [HPF] NRG Automated urine sediment leukocyte count by microscopy (number/high power field) NONE NRG Bacteria detection in urine sediment by light microsco py TRACE NRG Squamous epithelial cells detection in u rine sediment by light microscopy 2-5 NRG Crystals detection in urine sediment by light microsco py PRESENT NRG Casts detection in urine sediment by light microscopy NONE NRG Mucus detection in urine sediment by light microscopy SMALL NRG Complete urinalysis with reflex to culture NO NRG Amorphous sediment detection in urine sediment by ligh t microscopy FEW SHANEKA URATES NRG Complete blood count (CBC) with automate d white blood cell (WBC) differential - 03/11/18 23:35 Blood leukocytes automated count (number/volume) 11.0 10*3/uL 4.3-11.0 Blood erythrocytes automated count (number/volume) 4.74 10*6/uL 4.35-5.85 Venous blood hemoglobin measurement (mass/volume) 13.7 g/dL 11.5-16.0 Blood hematocrit (volume fraction) 42 % 35-52 Automated erythrocyte mean corpuscular volume 88 [ foz_us] 80-99 Automated erythrocyte mean corpuscular h emoglobin (mass per erythrocyte) 29 pg 25-34 Automated erythrocyte mean corpuscular h emoglobin concentration measurement (mass/volume) 33 g/dL 32-36 Automated erythrocyte distribution width ratio 14. 1 % 10.0- 14.5 Automated blood platelet count (count/volume) 467 10*3/uL 130-400 Automated blood platelet mean volume measurement 9.8 [foz_us] 7.4-10.4 Automated blood neutrophils/100 leukocytes 54 % 42-75 Automated blood lymphocytes/100 leukocytes 34 % 12-44 Blood monocytes/100 leukocytes 8 % 0-12 Automated blood eosinophils/100 leukocytes 4 % 0-10 Automated blood basophils/100 leukocytes 1 % 0-10 Blood neutrophils automated count (number/volume) 5.9 10*3 1.8-7.8 Blood lymphocytes automated count (number/volume) 3.8 10*3 1.0-4.0 Blood monocytes automated count (number/volume) 0. 9 10*3 0.0-1.0 Automated eosinophil count 0.4 10*3/uL 0 .0-0.3 Automated blood basophil count (count/volume) 0.1 10*3/uL 0.0-0.1 Comprehensive metabolic panel - 03/11/18 23:35 Serum or plasma sodium measurement (moles/volume) 139 mmol/L 135-145 Serum or plasma potassium measurement (moles/volume) 4.0 mmol/L 3.6-5.0 Serum or plasma chloride measurement (moles/volume) 103 mmol/L 98-107 Carbon dioxide 23 mmol/L 21-32 Serum or plasma anion gap determination (moles/volume) 13 mmol/L 5-14 Serum or plasma urea nitrogen measurement (mass/volume ) 15 mg/dL 7-18 Serum or plasma creatinine measurement (mass/volume) 0.79 mg/dL 0.60-1.30 Serum or plasma urea nitrogen/creatinine mass ratio 19 NRG Serum or plasma creatinine measurement w ith calculation of estimated glomerular filtration rate > NRG Serum or plasma glucose measurement (mass/volume) 100 mg/dL 70-105 Serum or plasma calcium measurement (mass/volume) 9.6 mg/dL 8.5-10.1 Serum or plasma total bilirubin measurement (mass/volu me) 0.2 mg/dL 0.1-1.0 Serum or plasma alkaline phosphatase victorina surement (enzymatic activity/volume) 61 U/L 60-350 Serum or plasma aspartate aminotransfera se measurement (enzymatic activity/volume) 20 U/L 5-34 Serum or plasma alanine aminotransferase measurement (enzymatic activity/volume) 28 U/L 0-55 Serum or plasma protein measurement (mass/volume) 7.8 g/dL 6.4-8.2 Serum or plasma albumin measurement (mass/volume) 4.3 g/dL 3.2-4.5 CALCIUM CORRECTED 9.4 mg/dL 8.5-10.1 Serum or plasma amylase measurement (enz ymatic activity/volume) - 03/11/18 23:35 Serum or plasma amylase measurement (enzymatic activit y/volume) 39 U/L 25-125 Lipase - 03/11/18 23:35 Lipase 24 U/L 8-78 Encounters ACCT No. Visit Date/Time Discharge Status Pt. Type Provider Facility Loc./Unit Complaint [id number] 09/30/2018 10:12:00 09/30/2018 10:12: 00 DIS Outpatient KENNY METZGER [id number] 07/10/2018 07:57:00 09/21/2018 15:41: 00 DIS Outpatient KENNY METZGER [id number] 07/27/2018 11:44:00 07/27/2018 23:59: 59 CLS Outpatient KENNY METZGER [id number] 05/15/2018 16:11:20 05/15/2018 23:59: 59 CLS Outpatient KENNY METZGER [id number] 05/01/2018 08:57:00 05/01/2018 08:57: 00 DIS Outpatient KENNY METZGER [id number] 04/20/2018 08:21:00 04/20/2018 08:21: 00 DIS Outpatient KENNY METZGER [id number] 04/01/2018 07:46:00 04/01/2018 23:59: 59 CLS Outpatient LEAH BARNES [id number] 10/24/2014 13:47:00 10/24/2014 23:59: 59 CLS Outpatient TEETEE DEUTSCH MD [id number] 10/11/2014 09:12:00 10/11/2014 23:59: 59 CLS Outpatient SIENA RAMEY APRN [id number] 09/21/2014 14:52:00 09/21/2014 23:59: 59 CLS Outpatient STEPHANIE WALSH [id number] 05/13/2014 11:24:00 05/13/2014 23:59: 59 CLS Outpatient STEPHANIE WALSH [id number] 05/13/2014 11:24:00 05/13/2014 23:59: 59 CLS Outpatient STEPHANIE WALSH [id number] 05/04/2014 14:47:00 05/04/2014 23:59: 59 CLS Outpatient CHETAN MILLER APRN [id number] 02/14/2014 11:51:00 02/14/2014 23:59: 59 CLS Outpatient KHADIJAH COLVIN APRN [id number] 08/09/2013 13:34:00 08/09/2013 23:59: 59 CLS Outpatient KHADIJAH COLVIN APRN [id number] 09/09/2012 10:54:00 09/09/2012 23:59: 59 CLS Outpatient TEETEE DEUTSCH MD [id number] 09/09/2012 10:54:00 09/09/2012 23:59: 59 CLS Outpatient TEETEE DEUTSCH MD [id number] 07/30/2012 13:09:00 07/30/2012 23:59: 59 CLS Outpatient [id number] 04/29/2012 12:50:00 04/29/2012 23:59: 59 CLS Outpatient KHADIJAH COLVIN APRN [id number] 05/19/2018 20:55:00 018 23:00:00 DIS Outpatient MING KRAUS [facility] ER BUMP ON HEAD,HEADACHE,P RESSURE [id number] 03/11/2018 23:13:00 018 02:02:00 DIS Outpatient IVA BRITTON DO, V [facility] ER VOMITING,UPPER ABD PAIN FEELS HARD,DIZZY [id number] 08/26/2016 10:42:00 017 23:59:59 CLS Outpatient KASEY MOURA MD [facility] VIT D DEFICIENCY [id number] 05/13/2016 12:10:00 Document Registration
== END 2020-01-27 21:05 | disposition home or self-care (01) ==
LOC: EDUNIT# 20:15 → ER 20:17
DX: S33.5XXA Sprain of ligaments of lumbar spine, initial encounter (principal); K21.9 Gastro-esophageal reflux disease without esophagitis; X50.0XXA Overexertion from strenuous movement or load, initial encounter
CPT/HCPCS: 99283